=== PATIENT | male | born 1960 | race Caucasian/White ===

== ENCOUNTER 2017-01-07 07:36 | Emergency (ER) | payer BC, OTHER ==
[2017-01-07 07:47] VITALS: BP 150/75
--- NOTE | 2017-01-07 07:49 | ED Physician Documentation ---
PD HPI SKIN - Stated complaint Stated Complaint: L WRIST SWOLLEN/PX - History obtained from History obtained from: Patient - History of Present Illness Timing - onset: How many days ago (several) Timing - duration: Days Timing - details: Gradual onset, Still present Location: LUE (dorsum left wrist, pain and swelling, worsening over few days.) Quality / character: Painful, Swelling. No: Discolored, Draining Similar symptoms before: Has not had sx before Recently seen: Not recently seen Review of Systems Constitutional: denies: Fever, Chills Skin: denies: Rash, Lesions Musculoskeletal: reports: Extremity pain (dorsum wrist), Extremity swelling Neurologic: denies: Focal weakness, Numbness PD PAST MEDICAL HISTORY - Past Medical History Neuro: None Endocrine/Autoimmune: None - Present Medications Home Medications: Ambulatory Orders Medication Instructions Recorded Confirmed Aspirin [Adult Low Dose Aspirin EC] 891 mg ORAL DAILY 01/07/17 01/07/17 Dexamethasone [Decadron] 4 mg PO DAILY #5 tablet 01/07/17 Lisinopril 20 mg ORAL DAILY 01/07/17 01/07/17 Oxycodone HCl/Acetaminophen 1 each PO Q6H PRN #20 tablet 01/07/17 [Percocet 5-325 mg Tablet] Water Pill 1 tab ORAL DAILY 01/07/17 01/07/17 - Allergies Allergies/Adverse Reactions: Allergies Allergy/AdvReac Type Severity Reaction Status Date / Time No Known Drug Allergies Allergy Verified 01/07/17 07:41 PD ED PE NORMAL - Vitals Vital signs reviewed: Yes - General General: Alert and oriented X 3, No acute distress, Well developed/nourished - Derm Derm: Normal color, Warm and dry - Extremities Extremities: Other (left wrist dorsum with tenderness mid wrist. Not tender particularly at EPL part of thumb base. Some swelling over dorsum of wrist and proximal hand. No skin sores. No redness nor warmth to suggest infection. Pain with fingers extension. ) - Neuro Neuro: Alert and oriented X 3, No motor deficit, No sensory deficit, Normal speech Results - Vitals Vitals: Oxygen O2 Source Room air - Rads (name of study) wrist Radiology: Prelim report reviewed (normal bony structures) PD MEDICAL DECISION MAKING - ED course Complexity details: reviewed results, considered differential (seems likely tendonitis, though could have element of gout too (has had possible gout episode in the toe in the past). ), d/w patient Departure - Departure Disposition: 01 Home, Self Care Clinical Impression: Left wrist tendonitis Condition: Stable Record reviewed to determine appropriate education?: Yes Instructions: Tendonitis and Tenosynovitis Follow-Up: DIAN RAZO [Primary Care Provider] - Prescriptions: Dexamethasone [Decadron] 4 mg PO DAILY #5 tablet Oxycodone HCl/Acetaminophen [Percocet 5-325 mg Tablet] 1 each PO Q6H PRN #20 tablet PRN Reason: Pain Comments: Continue the wrist splint and the Naproxen twice daily. Add Decadron daily for 5 days. Add Tylenol 4 times daily or Percocet for pain as needed. Recheck if not better over the next few days. This seems likely tendonitis of the wrist, though there could be an element of gout as well, which would be similar treatments. Discharge Date/Time: 01/07/17 09:32
[2017-01-07] MEDS ORDERED: DEXAMETHASONE 10 MG/ML VIAL PO STA (08:07)
[2017-01-07] MEDS ORDERED: oxyCOD/ACETAMIN 5 MG/325 MG TABLET PO STA (08:07)
[2017-01-07] MEDS ORDERED: oxyCOD/ACETAMIN 5 MG/325 MG TABLET PO ONE (08:08)
[2017-01-07] MEDS ORDERED: CHERRY SYRUP 10 ML UDC PO ONE (08:09)
[2017-01-07] MEDS ORDERED: DEXAMETHASONE 10 MG/ML VIAL ONE (08:09)
--- NOTE | 2017-01-07 08:33 | XRAY Preliminary Report ---
Exam: XR Wrist 4 View LT IMPRESSION: Minimal soft tissue swelling. No fracture or malalignment. [facility] SITE ID: [id number]
--- NOTE | 2017-01-07 08:35 | XRAY Report ---
EXAM: LEFT WRIST RADIOGRAPHY EXAM DATE: 01/07/2017 08:22 AM. CLINICAL HISTORY: Wrist pain for 2 days; pulled while walking dogs. COMPARISON: None. TECHNIQUE: 4 views. FINDINGS: Bones: No fracture or proximal obstruction. Joints: Normal alignment. No subluxations. Soft Tissues: Minimal soft tissue swelling. IMPRESSION: Minimal soft tissue swelling. No fracture or malalignment. [facility] Referring Provider Line: [phone] SITE ID: [id number]
== END 2017-01-07 09:32 | disposition home or self-care (01) ==
LOC: ED 07:36
DX: M77.9 Enthesopathy, unspecified (principal); Z79.82 Long term (current) use of aspirin
CPT/HCPCS: 73110; 99283; A9270

== ENCOUNTER 2017-03-26 06:00 | Emergency (ER) | payer BC, OTHER ==
--- NOTE | 2017-03-26 06:40 | XRAY Preliminary Report ---
Exam: XR Knee 3 View RT IMPRESSION: 1. No right knee fracture or malalignment. 2. Suspect joint effusion. [facility] SITE ID: [id number]
--- NOTE | 2017-03-26 06:41 | ED Physician Documentation ---
PD HPI LOWER EXT INJURY - Stated complaint Stated Complaint: RT KNEE,LT WRIST PAIN - Chief complaint Chief Complaint: Ext Problem - History obtained from History obtained from: Patient, Family - History of Present Illness PD HPI LOW EXT INJURY LOCATION: Right, Knee Where injury occurred[place] Timing - onset: How many days ago (4) Timing - details: Gradual onset, Still present Improved by: Rest, Ice Worsened by: Moving, Palpating Associated symptoms: Swelling. No: Weakness, Numbness, Tingling Contributing factors: No: Anticoagulated, Prior ortho surgery, Prosthetic joint , Work related Similar symptoms before: Has not had sx before Recently seen: Not recently seen - Additional information Additional information: Patient is a 56 year old male with a history of gout who is presenting to the emergency department for right sided knee pain. Patient states that 4 days ago he went hiking, the next morning he woke up and his knee was stiff. patient states that over the last 4 days his knee has become more painful and swollen. patient denies any fevers, chills nausea or vomiting. patient states that his gout is normally in his foot. Review of Systems Constitutional: denies: Fever, Chills, Myalgias Eyes: denies: Photophobia Ears: denies: Ear pain, Drainage/discharge Nose: denies: Rhinorrhea / runny nose, Congestion Throat: denies: Sore throat Cardiac: denies: Chest pain / pressure, Palpitations Respiratory: denies: Cough GI: denies: Abdominal Pain, Nausea, Vomiting : denies: Dysuria, Frequency PD PAST MEDICAL HISTORY - Past Medical History Cardiovascular: Hypertension Neuro: None Endocrine/Autoimmune: None - Past Surgical History Past Surgical History: Yes General: Appendectomy - Present Medications Home Medications: Ambulatory Orders Medication Instructions Recorded Confirmed Aspirin [Adult Low Dose Aspirin EC] 891 mg ORAL DAILY 01/07/17 03/26/17 Lisinopril 40 mg ORAL DAILY 01/07/17 03/26/17 Indomethacin 50 mg PO TID #21 capsule 03/26/17 Prednisone 40 mg PO DAILY 5 Days 03/26/17 - Allergies Allergies/Adverse Reactions: Allergies Allergy/AdvReac Type Severity Reaction Status Date / Time No Known Drug Allergies Allergy Verified 03/26/17 06:11 - Social History Does the pt smoke?: No Smoking Status: Never smoker Does the pt drink ETOH?: Yes ETOH Use: Liquor Does the pt have substance abuse?: No - Immunizations Immunizations are current?: No Immunizations: TDAP >10years/unknown - POLST Patient has POLST: No PD ED PE NORMAL - Vitals Vital signs reviewed: Yes - General General: Alert and oriented X 3 - HEENT HEENT: Atraumatic, PERRL - Neck Neck: Supple, no meningeal sign - Cardiac Cardiac: RRR, No murmur - Respiratory Respiratory: No respiratory distress, Clear bilaterally - Abdomen Abdomen: Soft, Non tender, Non distended - Derm Derm: Normal color, Warm and dry, No rash - Extremities Extremities: No deformity - Neuro Neuro: Alert and oriented X 3, No motor deficit, No sensory deficit - Psych Psych: Normal mood, Normal affect PD ED PE EXPANDED - Extremities Extremities: Right knee (tenerness and mild effusionof right knee) Results - Vitals Vitals: Vital Signs - 24 hr 03/26/17 06:05 Temperature 36.9 C Heart Rate 79 Respiratory 16 Rate Blood Pressure 152/74 H O2 Saturation 99 Oxygen O2 Source Room air - Rads (name of study) right knee Radiology: Final report received (small joint effusion) PD MEDICAL DECISION MAKING - ED course Complexity details: reviewed old records, reviewed results, re-evaluated patient , considered differential, d/w patient ED course: Patient was seen and examined at bedside. Patient had normal vital signs and was well appearing. patient was sent for imaging. when patient returned the results were reviewed. there was an effusion but no fracture or dislocation. patient stated that he did not want his knee tapped at this time and that he had follow up with his pmd on . patient was treated with indomethacin and prednisone. patient required no further work up at this time and was stable for discharge with outpatient follow up. Departure - Departure Disposition: Home, Self Care Clinical Impression: Gout of right knee Condition: Good Instructions: Gout Attack Tx, Gout Eat Prevent Follow-Up: AYANNA CABALLERO [Primary Care Provider] - Prescriptions: Indomethacin 50 mg PO TID #21 capsule Prednisone 40 mg PO DAILY 5 Days Comments: Your symptoms today are likely being caused by a gouty flare. You had your first dose of steroids today and will take them for the next five days. You should refrain from eating meat and red wine. You should not combine the indomethacin with naproxen or other nsaids. You should follow up with your pmd on your appointment on . You may return to the emergency department at any time for new, worsening or uncontrollable symptoms.
--- NOTE | 2017-03-26 06:42 | XRAY Report ---
EXAM: RIGHT KNEE RADIOGRAPHY EXAM DATE: 03/26/2017 06:29 AM. CLINICAL HISTORY: Pain in the right knee after hiking three days ago with swelling. COMPARISON: None. TECHNIQUE: 3 views. FINDINGS: Bones: Normal. No fractures or bone lesions. Joints: No malalignment. Mild degenerative changes and effusion present. Soft Tissues: Normal. No soft tissue swelling. IMPRESSION: 1. No right knee fracture or malalignment. 2. Suspect joint effusion. [facility] Referring Provider Line: [phone] SITE ID: [id number]
[2017-03-26] MEDS ORDERED: INDOMETHACIN 25 MG CAPSULE PO STA (06:51)
[2017-03-26] MEDS ORDERED: predniSONE 20 MG TABLET PO STA (06:51)
[2017-03-26] MEDS ORDERED: predniSONE 20 MG TABLET ONE (06:57)
[2017-03-26] MEDS ORDERED: INDOMETHACIN 25 MG CAPSULE PO ONE (06:57)
[2017-03-26 07:03] VITALS: BP 153/74
== END 2017-03-26 07:10 | disposition home or self-care (01) ==
LOC: ED 06:00
DX: M10.9 Gout, unspecified (principal); I10 Essential (primary) hypertension; Z79.82 Long term (current) use of aspirin
CPT/HCPCS: 73562; 99283; A9270; J7512

== ENCOUNTER 2024-03-14 10:27 | Emergency (ER) | payer BC, OTHER ==
[2024-03-14 11:28] LABS: BASOPHILS # (AUTO) 0.1 10^3/uL (0.0-0.1); BASOPHILS % (AUTO) 0.8 %; EOSINOPHILS # (AUTO) 0.1 10^3/uL (0.0-0.7); EOSINOPHILS % (AUTO) 1.6 %; HCT - HEMATOCRIT 46.6 % (42.0-52.0); LYMPHOCYTES # (AUTO) 1.5 10^3/uL (1.5-3.5); LYMPHOCYTES % (AUTO) 22.8 %; MEAN CORPUSCULAR HEMOGLOBIN 33.4 pg (27.0-31.0); MEAN CORPUSCULAR HGB CONC 34.3 g/dL (32.0-36.0); MEAN CORPUSCULAR VOLUME 97.3 fL (80.0-94.0); MEAN PLATELET VOLUME 9.1 fL (7.4-11.4); MONOCYTES # (AUTO) 0.5 10^3/uL (0.0-1.0); MONOCYTES % (AUTO) 7.5 %; NEUTROPHILS # (AUTO) 4.3 10^3/uL (1.5-6.6); NEUTROPHILS % (AUTO) 67.1 %; PLT - PLATELET COUNT 264 10^3/uL (130-450); RED BLOOD COUNT 4.79 10^6/uL (4.70-6.10); RED CELL DISTRIBUTION WIDTH 12.8 % (12.0-15.0); WHITE BLOOD COUNT 6.4 x10^3/uL (4.8-10.8)
--- NOTE | 2024-03-14 11:43 | XRAY Report ---
PROCEDURE: Chest 1V INDICATIONS: Chest pain TECHNIQUE: One view of the chest was acquired. COMPARISON: None. FINDINGS: Surgical changes and devices: None. Lungs and pleura: No pleural effusions or pneumothorax. Lungs are clear. Mediastinum: Mediastinal contours appear normal. Borderline cardiomegaly. Bones and chest wall: No suspicious bony lesions. Overlying soft tissues appear unremarkable. IMPRESSION: Borderline cardiomegaly. No acute pulmonary process. Reviewed by: Miguel Snyder MD on 03/14/2024 11:41 AM PDT Approved by: Miguel Snyder MD on 03/14/2024 11:41 AM PDT Station ID: [id number]
[2024-03-14 11:44] LABS: ALBUMIN 3.9 g/dL (3.2-5.5); ALBUMIN/GLOBULIN RATIO 1.1 (1.0-2.2); CALCIUM 9.5 mg/dL (8.5-10.3); CREATININE 0.9 mg/dL (0.6-1.3); POTASSIUM 3.6 mmol/L (3.5-4.5); TOTAL PROTEIN 7.4 g/dL (6.4-8.9)
--- NOTE | 2024-03-14 11:57 | ED Physician Documentation ---
History of Present Illness - Stated complaint Stated Complaint: HIGH HEART RATE - Chief complaint Chief Complaint: Cardiac - History obtained from History obtained from: Patient, Family - Additonal information Additional information: The patient comes to the emergency department with chief complaint of elevated heart rate. He was seen yesterday for a stress echo after having palpitations since November. He has been seeing Dr. Espana of cardiology up in [place] and had his testing done at [facility] in [place]. The patient states that after the stress echo, he was found to have a heart rate of 140 and was told that he should go to the ER to get his heart rate slowed down. However, they had also offered IV fluids and watching him and the patient states that he figured he could just go home and drink water instead of getting IV fluids. The patient states that he felt fine all through the night and denies any chest pain or shortness of breath. He states that he did notice that his heart rate had gone up to around 140 this morning again and so he decided to come here after all. The patient denies any chest pain or shortness of breath at any time during all of this. He denies any nausea. No lightheadedness. The patient states that he is feeling fine now. No other complaints at this time. PD PAST MEDICAL HISTORY - Past Medical History Cardiovascular: Hypertension Endocrine/Autoimmune: None - Past Surgical History Past Surgical History: Yes General: Appendectomy - Present Medications Home Medications: Ambulatory Orders Medication Instructions Recorded Confirmed Aspirin [Adult Low Dose Aspirin EC] 891 mg ORAL DAILY 01/07/17 03/26/17 Lisinopril 40 mg ORAL DAILY 01/07/17 03/26/17 Indomethacin 50 mg PO TID #21 capsule 03/26/17 predniSONE [Prednisone] 40 mg PO DAILY 5 Days tablet 03/26/17 Apixaban [Eliquis] 5 mg PO BID #60 tablet 03/14/24 diltiaZEM CD [Cardizem Cd] 120 mg PO DAILY #30 cap 03/14/24 - Allergies Allergies/Adverse Reactions: Allergies Allergy/AdvReac Type Severity Reaction Status Date / Time No Known Drug Allergies Allergy Verified 03/14/24 10:42 - Social History Does the pt smoke?: No Smoking Status: Never smoker Does the pt drink ETOH?: Yes Does the pt have substance abuse?: No - Immunizations Immunizations are current?: No Immunizations: TDAP >10years/unknown - POLST Patient has POLST: No PD ED PE NORMAL - Vitals Vital signs reviewed: Yes - General General: Alert and oriented X 3, No acute distress, Well developed/nourished - HEENT HEENT: Atraumatic, PERRL, EOMI, Moist mucous membranes - Neck Neck: Supple, no meningeal sign - Cardiac Cardiac: No murmur, Other (Irregularly irregular rate and rhythm with an average heart rate around 100 bpm.) - Respiratory Respiratory: No respiratory distress, Clear bilaterally - Abdomen Abdomen: Soft, Non tender, Non distended - Derm Derm: Normal color, Warm and dry, No rash - Extremities Extremities: No deformity, No edema, No calf tenderness / cord - Neuro Neuro: Alert and oriented X 3 - Psych Psych: Normal mood, Normal affect Results - Vitals Vitals: Oxygen O2 Source Room air - EKG (time done) 1045 EKG releavant findings:: EKG personally interpreted by author of this note. Relevant findings are: Rate: Rate (enter#) (115) Rhythm: Atrial fibrillation Dawson: Normal QRS: Normal Ischemia: Normal ST segments, Non specific changes Compare to prior EKG: Old EKG unavailable Computer interpretation: Agree with computer - Labs Labs: Laboratory Tests 03/14/24 03/14/24 11:17 11:17 WBC 6.4 RBC 4.79 Hgb 16.0 Hct 46.6 MCV 97.3 H MCH 33.4 H MCHC 34.3 RDW 12.8 Plt Count 264 MPV 9.1 Neut # (Auto) 4.3 Lymph # (Auto) 1.5 Coleman # (Auto) 0.5 Eos # (Auto) 0.1 Baso # (Auto) 0.1 Absolute Nucleated RBC 0.00 Nucleated RBC % 0.0 Sodium 138 Potassium 3.6 Chloride 101 Carbon Dioxide 27 Anion Gap 10.0 BUN 11 Creatinine 0.9 Estimated GFR (MDRD) 86 L Glucose 107 H Calcium 9.5 Total Bilirubin 1.0 AST 17 ALT 21 Alkaline Phosphatase 66 Troponin I High Sens 24.0 H* Total Protein 7.4 Albumin 3.9 Globulin 3.5 Albumin/Globulin Ratio 1.1 Lipase 21 PD Medical Decision Making - ED course Complexity details: reviewed results, re-evaluated patient, considered differential, d/w patient, d/w family ED course: The pt looked very good in the ED, and his HR was ranging 90's to just over 100. There was no role for emergent management at this time. Labs were unremarkable, and EKG showed rate-controlled atrial fibrillation. Pt was not in RVR on the monitor at any point in his stay. I d/w pt that we can put him on cardizem and Eliquis until he can follow up with his cook 3 pastry, who is in [place]. We have discussed the usual indications for return. Departure - Departure Disposition: 01 Home, Self Care Clinical Impression: Atrial fibrillation Qualifiers: Atrial fibrillation type: unspecified chronic Qualified Code(s): I48.20 - Chronic atrial fibrillation, unspecified Condition: Stable Instructions: ED Afib Prescriptions: diltiaZEM CD [Cardizem Cd] 120 mg PO DAILY #30 cap Apixaban [Eliquis] 5 mg PO BID #60 tablet Comments: Today you are in atrial fibrillation but your heart rate has actually been fairly good, averaging around 100 bpm. This is not a dangerously high heart rate, but given that you have had some episodes where your heart rate is going higher in the setting of atrial fibrillation/flutter, we have started you on a medication that will help to control the heart rate and keep it from going too high. We have also started you on a blood thinner. I have sent prescriptions for the same to the [facility] pharmacy in [place] and you may pick them up this afternoon. Please call Dr. Espana's office soon as possible to follow-up on your cardiac testing and to schedule an appointment to see him and discuss what he would like to do for the longer term. If you develop chest pain, shortness of breath, or a heart rate that is sustained above 110 bpm and is not responding to your normal medications, please return to the emergency department. Forms: PCP List Discharge Date/Time: 03/14/24 12:26
[2024-03-14] MEDS: diltiaZEM CD 120 MG CAPSULE PO STA (12:07)
[2024-03-14] MEDS: APIXABAN 5 MG TABLET PO STA (12:07)
[2024-03-14 12:27] VITALS: BP 144/73; O2SAT 99
== END 2024-03-14 12:26 | disposition home or self-care (01) ==
LOC: ED 10:27
DX: I48.20 Chronic atrial fibrillation, unspecified (principal); Z79.01 Long term (current) use of anticoagulants
CPT/HCPCS: 36415; 71045; 80053; 83690; 84484; 85025; 93005; 99284; A9270